=== PATIENT | female | born 1945 | race Caucasian/White ===

== ENCOUNTER 2018-05-09 22:10 | Emergency (ER) | payer MEDICARE, OTHER ==
[2018-05-09] MEDS ORDERED: CLOPIDOGREL BISULFATE 300 MG TABLET PO ONE (22:34)
--- NOTE | 2018-05-09 22:34 | PDOC ---
History of Present Illness - General Chief Complaint: Pain Stated Complaint: PAIN History Source: Patient Exam Limitations: No Limitations - History of Present Illness Initial Comments: 05/10/18 06:40 cp x 1 week, worsening x 2 hours cp yaz, tightness radiating to rUE and head has not taken anything for this pain Timing/Duration: 1 week Severity: severe Modifying Factors: worse with: medication, movement Associated Symptoms: reports: chest pain, headaches. denies: fever/chills, nausea/vomiting Aspirin Received prior to arrival: Yes: no aspirin today Past History - Past Medical History Allergies/Adverse Reactions: Allergies Allergy/AdvReac Type Severity Reaction Status Date / Time codeine Allergy Unknown Verified 10/12/13 08:28 Home Medications: Ambulatory Orders Hydralazine HCl 100 mg PO BID 06/08/13 Cholecalciferol (Vitamin D3) [Vitamin D] 1,000 unit PO DAILY 10/08/13 Cyanocobalamin [Vitamin B12 -] 1,000 mcg PO DAILY 10/08/13 Insulin Glargine,Hum.rec.anlog [Lantus Solostar PEN -] 12 SQ ACBK 10/08/13 Lisinopril [Prinivil] 10 mg PO DAILY 10/08/13 Metoprolol Succinate [Toprol XL -] 50 mg PO BID 10/08/13 Naproxen Sodium [Aleve] 220 mg PO BID PRN 10/08/13 Acetaminophen [Tylenol .Regular Strength -] 650 mg PO PRN PRN #100 tablet Diabetes: Yes (TYPE II) GI Disorders: No Disorders: No HTN: Yes Hypercholesterolemia: Yes Kidney Stones: No Liver Disease: No Thyroid Disease: No - Surgical History Orthopedic Surgery: Yes - Suicide/Smoking/Psychosocial Hx Smoking Status: No Smoking History: Never smoked Have you smoked in the past 12 months: No Number of Cigarettes Smoked Daily: 0 Hx Alcohol Use: No Drug/Substance Use Hx: No Substance Use Type: None Review of Systems - Review of Systems All Other Systems: Reviewed and Negative *Physical Exam - Physical Exam General Appearance: Yes: Nourished, Appropriately Dressed HEENT: positive: EOMI, Other (exotropia) Neck: negative: Lymphadenopathy (R) Respiratory/Chest: positive: Lungs Clear Cardiovascular: positive: Regular Rhythm Gastrointestinal/Abdominal: negative: Tender Lymphatic: negative: Adenopathy Musculoskeletal: positive: Normal Inspection Extremity: positive: Normal Capillary Refill Integumentary: positive: Normal Color Neurologic: positive: Fully Oriented Heart Score/ECG Review - History History: Highly suspicious - Electrocardiogram EKG: Significant ST-depression - Age Age: >/= 65 - Risk Factors Risk Factors Heart Score: Yes Hx Diabetes - Troponin Troponin: </= normal limit - ECG Intrepretation Rhythm: Regular Rhythm - ST and T ST Elevation Suggest: Acute Myocardial Infarct - ECG Impressions Acute Myocardial Infarction: Anterior ED Treatment Course - LABORATORY CBC & Chemistry Diagram: 05/09/18 22:30 05/09/18 22:30 Medical Decision Making - Critical Care Time Total Critical Care Time (minutes): 90 Critical Care Statement: The care of this patient involved high complexity decision making to prevent further life threatening deterioration of the patient 's condition and/or to evaluate & treat vital organ system(s) failure or risk of failure. - Medical Decision Making 05/10/18 06:44 Hx + EKG concerning for L main STEMI ? dissection: BP essentially = in BL [facility] Cath team activated at [facility] (Dr. Chowdhury accepting) No Bleeding hx Anti-platelets and ac initiated IV morphine for analgesia transfer arranged *DC/Admit/Observation/Transfer Diagnosis at time of Disposition: STEMI (ST elevation myocardial infarction) Qualifiers: Involved coronary artery: left main coronary artery Qualified Code(s): I21.01 - ST elevation (STEMI) myocardial infarction involving left main coronary artery - Discharge Dispostion Disposition: TRANSFER ACUTE CARE/OTHER HOSP Condition at time of disposition: Stable - Referrals - Patient Instructions - Post Discharge Activity - Transfer to Acute Care Facility Receiving Facility: [facility]. Accepting Physician:: marisela
[2018-05-09] MEDS ORDERED: HEPARIN INFUSION - 25,000 UNITS/500 ML INFUS.BAG IVPB ONE (22:35)
[2018-05-09] MEDS ORDERED: HEPARIN NA (PORCINE) 5,000 UNITS/ML 1ML VIAL IVPUSH PRN ×3 (22:35→22:54)
[2018-05-09] MEDS ORDERED: HEPARIN NA (PORCINE) 5,000 UNITS/ML 1ML VIAL ONE (22:35)
[2018-05-09] MEDS ORDERED: CLOPIDOGREL BISULFATE 300 MG TABLET ONE (22:35)
[2018-05-09] MEDS ORDERED: morphine CARPU-JECT 2 MG/1 ML DISP.SYRIN IVPUSH ONE (22:35)
[2018-05-09] MEDS ORDERED: morphine SULFATE 4 MG/ML VIAL ONE (22:36)
[2018-05-09 22:39] VITALS: TEMP 98.4; BMI 21.4
[2018-05-09 22:58] VITALS: BP 150/71; PULSE 85
[2018-05-09] MEDS ORDERED: HEPARIN INFUSION - 25,000 UNITS/500 ML INFUS.BAG IVPB SCH (23:00)
[2018-05-09 23:02] LABS: BASO % 0.1 % (0-2.0); EOS % 2.1 % (0-4.5); HEMATOCRIT 23.3 % (32.4-45.2); HEMOGLOBIN 7.5 GM/dl (10.7-15.3); LYMPH % 13.3 % (8-40); MCH 27.6 pg (25.7-33.7); MCHC 32.3 g/dl (32.0-36.0); MEAN CELL VOLUME 85.2 fl (80-96); MEAN PLT VOLUME 6.9 fl (7.5-11.1); MONO % 4.8 % (3.8-10.2); NEUT % 79.7 % (42.8-82.8); PLATELET COUNT 432 K/MM3 (134-434); RBC 2.73 M/mm3 (3.60-5.2); RDW 14.9 % (11.6-15.6)
[2018-05-09 23:17] LABS: SODIUM 141 mmol/L (136-145)
[2018-05-09 23:19] LABS: INR 1.81 (0.82-1.09)
[2018-05-09 23:26] LABS: ALBUMIN 2.8 g/dl (3.5-5.0); ALK PHOS 136 U/L (32-92); ANION GAP 8 (8-16); BILIRUBIN,TOTAL 0.4 mg/dl (0.2-1.0); BLOOD UREA NITROGEN 46 mg/dl (7-18); CHLORIDE 113 mmol/L (98-107); CO2 20 mmol/L (22-28); CREATININE 3.3 mg/dl (0.6-1.3); GLUCOSE,RANDOM 253 mg/dl (74-106); POTASSIUM 4.3 mmol/L (3.5-5.1); SGOT/AST 17 U/L (10-42); SGPT/ALT 13 U/L (10-40); TOT PROT 6.6 g/dl (6.4-8.3)
[2018-05-10] MEDS ORDERED: ASPIRIN 81 MG CHEWABLE TABLETS PO SCH ×2 (10:00)
--- NOTE | 2018-05-14 13:08 | EKG ---
Test Reason : Blood Pressure : / mmHG Vent. Rate : 086 BPM Atrial Rate : 086 BPM P-R Int : 170 ms QRS Dur : 146 ms QT Int : 484 ms P-R-T Axes : 050 110 -74 degrees QTc Int : 579 ms SINUS RHYTHM WITH OCCASIONAL PREMATURE VENTRICULAR COMPLEXES POSSIBLE LEFT ATRIAL ENLARGEMENT RIGHT BUNDLE BRANCH BLOCK LEFT POSTERIOR FASCICULAR BLOCK BIFASCICULAR BLOCK T WAVE ABNORMALITY, CONSIDER INFEROLATERAL ISCHEMIA ABNORMAL ECG NO PREVIOUS ECGS AVAILABLE Confirmed by RAMIRO TURNER, MAGDA ([id number]) on 05/14/2018 1:08:20 PM Referred By: MD THOMAS Confirmed By:MAGDA RUBIO MD
== END 2018-05-09 23:15 | disposition short-term general hospital (02) ==
LOC: FER 22:10
PROC: 3E033GC Introduction of Other Therapeutic Substance into Peripheral Vein, Percutaneous Approach (ICD-10-PCS; principal; 2018-05-09)
PROC: 3E033NZ Introduction of Analgesics, Hypnotics, Sedatives into Peripheral Vein, Percutaneous Approach (ICD-10-PCS; 2018-05-09)
DX: I21.01 ST elevation (STEMI) myocardial infarction involving left main coronary artery (principal); I10 Essential (primary) hypertension; E78.00 Pure hypercholesterolemia, unspecified; E11.9 Type 2 diabetes mellitus without complications
CPT/HCPCS: 36415; 80053; 82550; 84484; 85025; 85610; 85730; 93005; 96365; 96374; 99281-25; J1644